=== PATIENT | male | born 1990 | race Caucasian/White ===

== ENCOUNTER 2019-06-23 20:46 | Emergency (ER) | payer OTHER ==
[~2019-06-23] VITALS: Ht 167.6 cm; Wt 86.0 kg
[2019-06-23 23:29] LABS: CHLORIDE 106 mEq/L (98-107)
[2019-06-23] MEDS ORDERED: POTASSIUM CHLORIDE 20MEQ TABLET SR PO ONE (23:45)
[2019-06-24 00:27] VITALS: BP 121/88
== END 2019-06-24 00:33 | disposition home or self-care (01) ==
LOC: ER 20:46
DX: F41.1 Generalized anxiety disorder (principal); E87.6 Hypokalemia; G51.39 Clonic hemifacial spasm, unspecified; Z02.89 Encounter for other administrative examinations; F15.10 Other stimulant abuse, uncomplicated
CPT/HCPCS: 36415; 80048; 93005; 99284